=== PATIENT | male | born 1995 | race American Indian/Alaskan Native ===

== ENCOUNTER 2016-07-07 23:01 | Emergency (ER) | payer OTHER ==
--- NOTE | 2016-07-08 04:38 | Emergency Department Report ---
HPI - General Chief Complaint: Allergic Reaction Time Seen by Provider: 07/08/16 04:23 - HPI HPI: Patient is a 20-year-old male with a history of schizophrenia and anxiety who presents to ED stating that he took his medication earlier today and a few hours after he took the medication he began to react silhouette he states his face and mouth and jaw locking up. Patient states he had no loss of consciousness. Patient states didn't call the ambulance ambulance came and administered some Benadryl patient states he feels much better at this time. Patient denies any rash or tongue swelling or throat closing or shortness of breath ED Past Medical Hx - Past Medical History Previous Medical History?: No Hx Psychiatric Treatment: Yes Additional medical history: Bronchitis - Surgical History Past Surgical History?: No - Social History Smoking Status: Current Every Day Smoker Substance Use Type: Alcohol - Medications Home Medications: Home Medications Medication Instructions Recorded Confirmed Last Taken Type Benztropine [Cogentin] 1 mg PO BID 12/23/15 12/23/15 Unknown History OLANzapine [ZyPREXA] 10 mg PO DAILY 12/23/15 12/23/15 Unknown History Sertraline [Zoloft] 100 mg PO QDAY 12/23/15 12/23/15 Unknown History Trazodone HCl 100 mg PO DAILY 12/23/15 12/23/15 Unknown History diphenhydrAMINE [Benadryl CAP] 50 mg PO QHS PRN #24 capsule 07/08/16 Unknown Rx ED Review of Systems ROS: Stated complaint: REACTION TO MEDS Other details as noted in HPI Constitutional: denies: chills, fever Eyes: denies: eye pain, eye discharge, vision change ENT: denies: ear pain, throat pain Respiratory: denies: cough, shortness of breath, wheezing Cardiovascular: denies: chest pain, palpitations Endocrine: no symptoms reported Gastrointestinal: denies: abdominal pain, nausea, vomiting, diarrhea Genitourinary: denies: urgency, dysuria, frequency, hematuria Musculoskeletal: denies: back pain, joint swelling, arthralgia Skin: denies: rash, lesions Neurological: denies: headache, weakness, numbness, paresthesias, confusion, vertigo Psychiatric: denies: anxiety, depression Hematological/Lymphatic: denies: easy bleeding, easy bruising Physical Exam - Physical Exam Vital Signs: Vital Signs 07/08/16 01:24 Temperature 97.9 F Pulse Rate 65 Blood Pressure 111/72 O2 Sat by Pulse 100 Oximetry Physical Exam: GENERAL: Alert and oriented x3, no apparent distress, Normal Gait, atraumatic. HEAD: Head is normocephalic and a-traumatic. EYES: Extra ocular muscles are intact. Pupils are equal, round, and reactive to light and accommodation. MOUTH:Mouth is well hydrated and without lesions. Tonsils nonerythematous or swollen, Uvula midline, Tongue not elevated. Mucous membranes are moist. Posterior pharynx clear, no exudate or lesions. Patent airways. LUNGS: Symetrical with respiration, No wheezing, no rales or crackles, CTAB. HEART: S1, S2 present, regular rate and rhythm without murmur, no rubs, no gallops. EXTREMITIES/MUSCULOSKELETAL: No cyanosis, clubbing, rash, lesions or edema. Full ROM bilaterally. NEUROLOGIC: The patient is cooperative with no focal neurologic deficits. Cranial nerves II through XII are grossly intact. Normal speech. PSYCHIATRIC: Mood is congruent with affect, denies suicidal or homicidal ideations. SKIN: Warm and dry, No lesions, No ulceration or induration present. ED Course Vital Signs 07/08/16 01:24 Temperature 97.9 F Pulse Rate 65 Blood Pressure 111/72 O2 Sat by Pulse 100 Oximetry ED Medical Decision Making - Medical Decision Making 18-year-old male presents with allergic reaction ED course: Patient states feeling much better patient states he has no symptoms at this moment Discussed with patient follow-up with his psych doctor for assessment of medication. Patient states he is seen at the [facility]. Patient states he will follow -up. Vital signs are normal patient is in no acute distress. Critical care attestation.: If time is entered above; I have spent that time in minutes in the direct care of this critically ill patient, excluding procedure time. ED Disposition Clinical Impression: Allergic reaction caused by a drug Qualifiers: Encounter type: initial encounter Qualified Code(s): T78.40XA - Allergy, unspecified, initial encounter Disposition: DISCHARGED TO HOME OR SELFCARE Is pt being admited?: No Does the pt Need Aspirin: No Condition: Stable Instructions: Anaphylaxis (ED), Allergies (ED) Prescriptions: diphenhydrAMINE [Benadryl CAP] 50 mg PO QHS PRN #24 capsule PRN Reason: Allergic Reaction Referrals: PRIMARY CARE, [Primary Care Provider] - 3-5 Days [facility]Outside[facility] - 3-5 Days [facility] [Outside] - 3-5 Days [facility] [Outside] - 3-5 Days Forms: Work/School Release Form(ED) Time of Disposition: 05:05
[2016-07-08] MEDS ORDERED: DELTASONE PO ONE (05:11)
[2016-07-08 05:28] VITALS: BP 95/63
== END 2016-07-08 05:26 | disposition home or self-care (01) ==
LOC: ED 23:01
DX: T78.40XA Allergy, unspecified, initial encounter (principal); T50.905A Adverse effect of unspecified drugs, medicaments and biological substances, initial encounter; F17.200 Nicotine dependence, unspecified, uncomplicated; Y92.89 Other specified places as the place of occurrence of the external cause
CPT/HCPCS: 99282; J7512

== ENCOUNTER 2016-11-11 22:39 | Emergency (ER) | payer SELFPAY ==
[2016-11-12 00:27] LABS: Basophils % (Auto) 0.6 % (0.0-1.8); Eosinophils % (Auto) 0.5 % (0.0-4.3); Hematocrit 39.3 % (35.5-45.6); Mean Corpuscular HGB Conc 33 % (32-34); Mean Corpuscular Hemoglobin 30 pg (28-32); Mean Corpuscular Volume 89 fl (84-94); Platelet Count 239 K/mm3 (140-440); Red Cell Distribution Width 12.7 % (13.2-15.2); White Blood Count 7.9 K/mm3 (4.5-11.0)
[2016-11-12 00:43] LABS: Anion Gap 17 mmol/L; BUN/Creatinine Ratio 11.11; Blood Urea Nitrogen 10 mg/dL (9-20); Calcium 8.9 mg/dL (8.4-10.2); Carbon Dioxide 24 mmol/L (22-30); Glucose 95 mg/dL (75-100); Potassium 4.1 mmol/L (3.6-5.0); Sodium 136 mmol/L (137-145)
[2016-11-12 01:21] LABS: Urine Drugs of Abuse Note Disclamer
[2016-11-12 01:40] LABS: Bilirubin,Urine NEG (Negative); Blood,Urine NEG (Negative); Ketones,Urine NEG (Negative); Leukocyte Esterase,Urine NEG (Negative); Mucus,Urine FEW /HPF; Nitrite,Urine NEG (Negative); Protein,Urine <15 mg/dL mg/dL (Negative); Urobilinogen,Urine < 2.0 mg/dL (<2.0)
--- NOTE | 2016-11-12 03:05 | Emergency Department Report ---
HPI - General Chief Complaint: Psych Time Seen by Provider: 11/12/16 02:30 - HPI HPI: This is a 21 year-old male presents to the emergency department requesting some medication refills and also saying that he has nowhere to go as his brother kicked him out of the house. He says that his brother does not believe in mental illness and he says that his brother told him "if you are going to live in this house you can't believe in mental illness. " He also says that his brother told him that he has not been helping him out with any rent or playing any bills. The patient has a history of schizoaffective disorder and bipolar disorder. He is on Abilify and Seroquel and says that he recently got a shot of Invega at the [facility]. He does have auditory hallucinations and occasionally will have some visual hallucinations but he denies any suicidal or homicidal ideations. ED Past Medical Hx - Past Medical History Previous Medical History?: Yes Hx Psychiatric Treatment: Yes Additional medical history: Bronchitis - Surgical History Past Surgical History?: No - Social History Smoking Status: Light Tobacco Smoker Substance Use Type: None, Methamphetamines - Medications Home Medications: Home Medications Medication Instructions Recorded Confirmed Last Taken Type Benztropine [Cogentin] 1 mg PO BID 12/23/15 12/23/15 Unknown History OLANzapine [ZyPREXA] 10 mg PO DAILY 12/23/15 12/23/15 Unknown History Sertraline [Zoloft] 100 mg PO QDAY 12/23/15 12/23/15 Unknown History Trazodone HCl 100 mg PO DAILY 12/23/15 12/23/15 Unknown History diphenhydrAMINE [Benadryl CAP] 50 mg PO QHS PRN #24 capsule 07/08/16 Unknown Rx ED Review of Systems ROS: Stated complaint: MH Other details as noted in HPI Comment: All other systems reviewed and negative Constitutional: denies: chills, fever Eyes: denies: eye pain, eye discharge, vision change ENT: denies: ear pain, throat pain Respiratory: denies: cough, shortness of breath, wheezing Cardiovascular: denies: chest pain, palpitations Gastrointestinal: denies: abdominal pain, nausea, diarrhea Genitourinary: denies: urgency, dysuria Musculoskeletal: denies: back pain, joint swelling, arthralgia Skin: denies: rash, lesions Neurological: denies: headache, weakness, paresthesias Psychiatric: auditory hallucinations. denies: homicidal thoughts, suicidal thoughts Physical Exam - Physical Exam Vital Signs: Vital Signs 11/11/16 22:49 Temperature 99.4 F Pulse Rate 113 H Respiratory 16 Rate Blood Pressure 121/71 Blood Pressure 121/71 [Left] O2 Sat by Pulse 98 Oximetry Physical Exam: GENERAL: The patient is well-developed well-nourished. HENT: Normocephalic. Atraumatic. Patient has moist mucous membranes. EYES: Extraocular motions are intact. Pupils equal reactive to light bilaterally. NECK: Supple. Trachea is midline. CHEST/LUNGS: Clear to auscultation. There is no respiratory distress noted. HEART/CARDIOVASCULAR: Regular. There is no tachycardia. There is no gallop rub or murmur. ABDOMEN: Abdomen is soft, nontender. Patient has normal bowel sounds. There is no abdominal distention. SKIN: Skin is warm and dry. NEURO: The patient is awake, alert, and oriented. The patient is cooperative. The patient has no focal neurologic deficits. The patient has normal speech. MUSCULOSKELETAL: There is no tenderness or deformity. There is no limitation range of motion. There is no evidence of acute injury. ED Course Vital Signs 11/11/16 22:49 Temperature 99.4 F Pulse Rate 113 H Respiratory 16 Rate Blood Pressure 121/71 Blood Pressure 121/71 [Left] O2 Sat by Pulse 98 Oximetry ED Medical Decision Making - Lab Data Result diagrams: 11/12/16 00:10 11/12/16 00:10 - Medical Decision Making This patient presents after being kicked out of his brother's home and therefore currently has no where to go. He also appears to be out of his psychiatric medications but cannot currently remember the exact dosages. He appears to have a history of schizoaffective disorder and bipolar disorder. The patient does admit to some occasional auditory and visual hallucinations. He was asked multiple times and denies any suicidal or homicidal ideations. He is AAO 3 and currently calm and appropriate. For these reasons the patient does not appear to fit criteria to be made a 1013. He has a history of command hallucinations. While he has not been made a 1013, he will be seen by psychiatry later today. He also has a case management consult for discharge planning. Vital signs stable. Labs are unremarkable except for polysubstance abuse. The patient denies any significant drug use but there is a urine drug screen positive for cocaine, amphetamine and marijuana. The patient was seen by the crisis/behavioral counselor and by case management. Eventually the patient was given some intermediate referrals but ultimately his brother said that he could return back to the house. He was monitored throughout his ED stay and never showed any signs of psychosis or any criteria to be made a 1013. Critical Care Time: No Critical care attestation.: If time is entered above; I have spent that time in minutes in the direct care of this critically ill patient, excluding procedure time. ED Disposition Clinical Impression: Polysubstance abuse, History of bipolar disorder Schizoaffective disorder Qualifiers: Schizoaffective disorder type: unspecified Qualified Code(s): F25.9 - Schizoaffective disorder, unspecified Disposition: DC-01 TO HOME OR SELFCARE Is pt being admited?: No Condition: Stable Referrals: PRIMARY CARE [Primary Care Provider] - 3-5 Days
[2016-11-12 12:03] VITALS: BP 110/70
== END 2016-11-12 12:03 | disposition home or self-care (01) ==
LOC: ED 22:39
DX: F31.9 Bipolar disorder, unspecified (principal); F20.9 Schizophrenia, unspecified; F15.10 Other stimulant abuse, uncomplicated
CPT/HCPCS: 36415; 80048; 80307; 81001; 85025; 99283; G0480; 80320

== ENCOUNTER 2017-03-07 09:39 | Outpatient (CLI) | payer OTHER | END 2017-03-07 09:40 | disposition home or self-care (01) | LOC: PF 09:39 | PROVIDERS: ATTEND Internal Medicine | DX: J45.909 Unspecified asthma, uncomplicated (principal); F32.3 Major depressive disorder, single episode, severe with psychotic features; F17.210 Nicotine dependence, cigarettes, uncomplicated | CPT/HCPCS: 94010 ==

== ENCOUNTER 2019-02-07 16:49 | Emergency (ER) | payer SELFPAY ==
[2019-02-07 17:22] VITALS: BP 135/71
--- NOTE | 2019-02-07 21:06 | Emergency Department Report ---
ED General Adult HPI - General Chief complaint: Seizure Stated complaint: SEIZURE Time Seen by Provider: 02/07/19 20:48 Source: EMS Mode of arrival: Ambulatory Limitations: No Limitations - History of Present Illness Initial comments: 23-year-old -Polish male tells me that he come in for medical condition refill. It was reported that patient came in by EMS as he was found on the side of the road by [place] [employer] thinks the patient may have had a seizure. Upon EMS arrival it was reported patient was speaking [employer]. Review of patient's medical chart shows the patient has a history of Schizophrenia. Patient denies any homicidal or suicidal ideation. Triage vital signs are stable. Severity scale (0 -10): 0 - Related Data Home Medications Medication Instructions Recorded Confirmed Last Taken Benztropine [Cogentin] 1 mg PO BID 12/23/15 12/23/15 Unknown OLANzapine [ZyPREXA] 10 mg PO DAILY 12/23/15 12/23/15 Unknown Sertraline [Zoloft] 100 mg PO QDAY 12/23/15 12/23/15 Unknown Trazodone HCl 100 mg PO DAILY 12/23/15 12/23/15 Unknown Previous Rx's Medication Instructions Recorded Last Taken Type diphenhydrAMINE [Benadryl CAP] 50 mg PO QHS PRN #24 capsule 07/08/16 Unknown Rx Allergies Allergy/AdvReac Type Severity Reaction Status Date / Time haloperidol [From Haldol] Allergy Anaphylaxis Verified 02/07/19 17:18 ED Review of Systems ROS: Stated complaint: SEIZURE Other details as noted in HPI Comment: All other systems reviewed and negative Constitutional: denies: chills, fever Eyes: denies: eye pain, eye discharge, vision change ENT: denies: ear pain, throat pain Respiratory: denies: cough, shortness of breath, wheezing ED Past Medical Hx - Past Medical History Previous Medical History?: Yes Hx Psychiatric Treatment: Yes Additional medical history: Bronchitis - Social History Smoking Status: Current Every Day Smoker Substance Use Type: None - Medications Home Medications: Home Medications Medication Instructions Recorded Confirmed Last Taken Type Benztropine [Cogentin] 1 mg PO BID 12/23/15 12/23/15 Unknown History OLANzapine [ZyPREXA] 10 mg PO DAILY 12/23/15 12/23/15 Unknown History Sertraline [Zoloft] 100 mg PO QDAY 12/23/15 12/23/15 Unknown History Trazodone HCl 100 mg PO DAILY 12/23/15 12/23/15 Unknown History diphenhydrAMINE [Benadryl CAP] 50 mg PO QHS PRN #24 capsule 07/08/16 Unknown Rx ED Physical Exam - General Limitations: No Limitations General appearance: alert, in no apparent distress - Head Head exam: Present: atraumatic, normocephalic - Eye Eye exam: Present: normal appearance - ENT ENT exam: Present: mucous membranes moist - Respiratory Respiratory exam: Present: normal lung sounds bilaterally. Absent: respiratory distress - Cardiovascular Cardiovascular Exam: Present: regular rate, normal rhythm. Absent: systolic murmur, diastolic murmur, rubs, gallop - Neurological Exam Neurological exam: Present: alert, oriented X3, normal gait - Psychiatric Psychiatric exam: Present: normal affect, normal mood. Absent: depressed, agitated, anxious, homicidal ideation, suicidal ideation - Skin Skin exam: Present: warm, dry, intact, normal color. Absent: rash ED Course Vital Signs 02/07/19 17:20 Temperature 98.7 F Pulse Rate 90 Respiratory 16 Rate Blood Pressure 135/71 O2 Sat by Pulse 99 Oximetry ED Medical Decision Making - Medical Decision Making 23-year-old -Polish male tells me that he come in for medical condition refill. It was reported that patient came in by EMS as he was found on the side of the road by [place] [employer] thinks the patient may have had a seizure. Upon EMS arrival it was reported patient was speaking [employer]. Review of patient's medical chart shows the patient has a history of Schizophrenia. Patient denies any homicidal or suicidal ideation. Triage vital signs are stable. Patient's vitals and exam is stable no SI or HI. PERRL no post ictal period patient is to follow-up with his primary care provider. Critical care attestation.: If time is entered above; I have spent that time in minutes in the direct care of this critically ill patient, excluding procedure time. ED Disposition Clinical Impression: Schizophrenia Disposition: DC-01 TO HOME OR SELFCARE Is pt being admited?: No Does the pt Need Aspirin: No Condition: Stable Instructions: Schizophrenia (ED) Additional Instructions: Patient is to follow up with his mental health provider. [facility]. Referrals: [facility] [Outside] - 3-5 Days
== END 2019-02-07 21:00 | disposition home or self-care (01) ==
LOC: ED 16:49
DX: F20.9 Schizophrenia, unspecified (principal); J40 Bronchitis, not specified as acute or chronic; F17.200 Nicotine dependence, unspecified, uncomplicated; Z79.899 Other long term (current) drug therapy; Z88.8 Allergy status to other drugs, medicaments and biological substances; Z76.0 Encounter for issue of repeat prescription

== ENCOUNTER 2021-09-21 04:57 | Emergency (ER) | payer SELFPAY ==
[2021-09-21 05:51] LABS: Basophils % (Auto) 0.8 % (0.0-1.8); Eosinophils # (Auto) 0.3 K/mm3 (0.0-0.4); Eosinophils % (Auto) 6.5 % (0.0-4.3); Hematocrit 36.2 % (35.5-45.6); Lymphocytes % (Auto) 23.5 % (13.4-35.0); Mean Corpuscular HGB Conc 33 % (32-34); Mean Corpuscular Volume 89 fl (84-94); Monocytes # (Auto) 0.6 K/mm3 (0.0-0.8); Monocytes % (Auto) 13.8 % (0.0-7.3); Platelet Count 192 K/mm3 (140-440); Red Blood Count 4.07 M/mm3 (3.65-5.03); Red Cell Distribution Width 13.2 % (13.2-15.2)
[2021-09-21 06:08] LABS: Bacteria,Urine 1+ /HPF (Negative); WBC,Urine < 1.0 /HPF (0.0-6.0)
[2021-09-21 06:08] LABS: Blood Urea Nitrogen 12 mg/dL (9-20); Calcium 7.9 mg/dL (8.4-10.2); Hemolysis Index 5
[2021-09-21 06:09] LABS: Bilirubin,Urine Negative (Negative); Color,Urine Yellow (Yellow)
[2021-09-21 06:10] LABS: Blood,Urine Negative (Negative); Protein,Urine <15 mg/dL mg/dL (Negative)
[2021-09-21 06:20] LABS: BUN/Creatinine Ratio 17
[2021-09-21 06:49] LABS: Amphetamine Screen,Urine PRESUMPTIVE POSITIVE; Benzodiazepines Screen,Urine PRESUMPTIVE NEGATIVE; Cannabinoid Screen,Urine PRESUMPTIVE POSITIVE; Cocaine Screen,Urine PRESUMPTIVE NEGATIVE; Methadone Screen,Urine PRESUMPTIVE NEGATIVE; Opiate Screen,Urine PRESUMPTIVE NEGATIVE
--- NOTE | 2021-09-21 10:19 | Emergency Department Report ---
ED Psych HPI - General Chief Complaint: Medical Clearance Stated Complaint: MENTAL HELP Time Seen by Provider: 09/21/21 10:06 Source: patient Mode of arrival: Ambulatory - History of Present Illness Initial Comments: This is a 26-year-old male with bipolar disorder, schizoaffective disorder and schizophrenia who presents to the emergency department complaining of command hallucinations, "for a while". Patient states that these hallucinations are asking him to do bad things, but are not telling him to hurt anyone. Patient denies suicidal ideations or homicidal ideations, but he is requesting a psychiatric evaluation as he is concerned that his medications are not working and he was just released from intermediate on September 16, 2021. Patient also states that his family is concerned about his "mental health". Patient denies any known alleviating or aggravating factors. Patient denies having previously seen a psychiatrist, but is on several mental health medications. - Related Data Home Medications Medication Instructions Recorded Confirmed Last Taken Benztropine [Cogentin] 1 mg PO BID 12/23/15 12/23/15 Unknown OLANzapine [ZyPREXA] 10 mg PO DAILY 12/23/15 12/23/15 Unknown Sertraline [Zoloft] 100 mg PO QDAY 12/23/15 12/23/15 Unknown Trazodone HCl 100 mg PO DAILY 12/23/15 12/23/15 Unknown Previous Rx's Medication Instructions Recorded Last Taken Type diphenhydrAMINE [Benadryl CAP] 50 mg PO QHS PRN #24 capsule 07/08/16 Unknown Rx Allergies Allergy/AdvReac Type Severity Reaction Status Date / Time haloperidol [From Haldol] Allergy Anaphylaxis Verified 02/07/19 17:18 ED Review of Systems ROS: Stated complaint: MENTAL HELP Other details as noted in HPI Comment: All other systems reviewed and negative Constitutional: denies: chills, fever Eyes: denies: eye pain, eye discharge, vision change ENT: denies: ear pain, throat pain Respiratory: denies: cough, shortness of breath, wheezing Cardiovascular: denies: chest pain, palpitations Endocrine: no symptoms reported Gastrointestinal: denies: abdominal pain, nausea, diarrhea Genitourinary: denies: urgency, dysuria Musculoskeletal: denies: back pain, joint swelling, arthralgia Skin: lesions (pimple on nose). denies: rash Neurological: denies: headache, weakness, paresthesias Psychiatric: auditory hallucinations, visual hallucinations. denies: anxiety, depression, suicidal thoughts Hematological/Lymphatic: denies: easy bleeding, easy bruising ED Past Medical Hx - Past Medical History Hx Psychiatric Treatment: Yes Additional medical history: Bronchitis - Social History Smoking Status: Current Every Day Smoker Substance Use Type: None - Medications Home Medications: Home Medications Medication Instructions Recorded Confirmed Last Taken Type Benztropine [Cogentin] 1 mg PO BID 12/23/15 12/23/15 Unknown History OLANzapine [ZyPREXA] 10 mg PO DAILY 12/23/15 12/23/15 Unknown History Sertraline [Zoloft] 100 mg PO QDAY 12/23/15 12/23/15 Unknown History Trazodone HCl 100 mg PO DAILY 12/23/15 12/23/15 Unknown History diphenhydrAMINE [Benadryl CAP] 50 mg PO QHS PRN #24 capsule 07/08/16 Unknown Rx ED Physical Exam - General Limitations: No Limitations General appearance: alert, in no apparent distress - Head Head exam: Present: atraumatic, normocephalic - Eye Eye exam: Present: normal appearance, PERRL, EOMI - ENT ENT exam: Present: mucous membranes moist - Neck Neck exam: Present: normal inspection - Respiratory Respiratory exam: Present: normal lung sounds bilaterally. Absent: respiratory distress, wheezes - Cardiovascular Cardiovascular Exam: Present: regular rate, normal rhythm. Absent: systolic murmur, diastolic murmur, rubs, gallop - GI/Abdominal GI/Abdominal exam: Present: soft, normal bowel sounds. Absent: distended, tenderness, guarding - Rectal Rectal exam: Present: deferred - Extremities Exam Extremities exam: Present: normal inspection - Back Exam Back exam: Present: normal inspection - Neurological Exam Neurological exam: Present: alert, oriented X3 - Psychiatric Psychiatric exam: Present: normal mood, flat affect. Absent: normal affect, anxious, manic, homicidal ideation, suicidal ideation - Skin Skin exam: Present: warm, dry, intact, normal color. Absent: rash ED Course Vital Signs 09/21/21 04:58 Temperature 97.6 F Pulse Rate 82 Respiratory 18 Rate Blood Pressure 92/52 [Right] O2 Sat by Pulse 99 Oximetry - Reevaluation(s) Reevaluation #1: 09/21/21 10:28 This patient has been medically cleared, and is awaiting assessment by mental health, here. The patient is not being placed on a 1013, currently, as he is not actively agitated or psychotic. Patient also does not have any homicidal or suicidal ideations. Reevaluation #2: 09/21/21 13:01 There have been no acute issues during my shift, patient is still awaiting mental health evaluation and disposition. ED Medical Decision Making - Lab Data Result diagrams: 09/21/21 05:23 09/21/21 05:23 - Differential Diagnosis Malingering, acute psychosis, medication noncompliance Critical care attestation.: If time is entered above; I have spent that time in minutes in the direct care of this critically ill patient, excluding procedure time. ED Disposition Clinical Impression: Hallucination Disposition: 30 STILL A PATIENT Is pt being admited?: No Does the pt Need Aspirin: No Condition: Stable Referrals: FADY MILLARD MD [Primary Care Provider] - 3-5 Days
[2021-09-21 12:43] LABS: Benzodiazepines Screen,Urine Negative; Cocaine Screen,Urine Negative; Methadone Screen,Urine Negative; Opiate Screen,Urine Negative
[2021-09-21 13:04] LABS: Amphetamine Screen,Urine Positive; Cannabinoid Screen,Urine Positive
--- NOTE | 2021-09-21 13:26 | Consultation ---
History of Present Illness - Reason for Consult Consult date: 09/21/21 Reason for consult: suicidal ideation - History of Present Psychiatric Illness Per Note: This is a 26-year-old male with bipolar disorder, schizoaffective disorder and schizophrenia who presents to the emergency department complaining of command hallucinations, "for a while". Patient states that these hallucinations are asking him to do bad things, but are not telling him to hurt anyone. Patient denies suicidal ideation or homicidal ideation, but he is requesting a psychiatric evaluation as he is concerned that his medications are not working and he was just released from shelter on September 16, 2021. Patient also states that his family is concerned about his "mental health". Patient denies any known alleviating or aggravating factors. Patient denies having previously seen a psychiatrist, but is on several mental health medications. The patient was seen today. He is calm and cooperative. He endorses suicidal ideation and auditory hallucinations. He reports being non-compliant since his release from [facility] last Tuesday; states he was incarcerated for almost 3 years and was on Geodon and Cogentin. PAST PSYCHIATRIC HISTORY Diagnoses: Schizophrenia Suicide attempts or Self-harm behavior: Yes Prior psychiatric hospitalizations: Yes Substance Abuse history: Denies Previous psychiatric medications tried:Cogentin, Geodon Outpatient treatment: Yes PAST MEDICAL HISTORY: None reported Family Psychiatric History: None reported or documented SOCIAL HISTORY Living arrangement: Homeless Marital status: Single Employment status: Disabled REVIEW OF SYSTEMS Constitutional: Negative for weight loss ENT: Negative for stridor Respiratory: Negative for cough or hemoptysis All other systems reviewed and are negative MENTAL STATUS EXAMINATION General Appearance and Behavior: Age appropriate, good hygiene, wearing appropriate clothes, good eye contact, calm, cooperative Cooperation: Participating/engaged, but Guarded Psychomotor Behavior: Psychomotor normal Mood: depressed Affect and affective range: congruent with stated mood Thought Process: goal directed Thought Content: suicidal/hallucinations Speech: Normal tone and pace Suicidal Ideation: yes Homicidal Ideation: Denies Hallucinations: Auditory Delusions: None elicited Impulse Control: Normal Insight and Judgment: Limited insight and judgment Memory: Limited Attention: divided Orientation: Alert, oriented Assessment and Plan Schizophrenia Treatment Plan 1013 Continue home Meds Geodon 20mg po BID Cogentin 1mg po BID Risks, benefits and alternatives of medications discussed with the patient, questions answered and consent obtained from patient. PSYCHOTHERAPY: Supportive psychotherapy provided MEDICAL: Per primary team DELIRIUM PRECAUTIONS: Please re-orient patient frequently, keep lights on during the day, and minimize benzodiazepines and opiates as these medications could worsen patient's confusion. 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 Thank you for the consult. Please contact with any questions and/or concerns. Case staffed with Dr. Vuong Medications and Allergies Medications and Allergies Allergies Allergy/AdvReac Type Severity Reaction Status Date / Time haloperidol [From Haldol] Allergy Anaphylaxis Verified 02/07/19 17:18 Home Medications Medication Instructions Recorded Confirmed Last Taken Type Benztropine [Cogentin] 1 mg PO BID 12/23/15 12/23/15 Unknown History OLANzapine [ZyPREXA] 10 mg PO DAILY 12/23/15 12/23/15 Unknown History Sertraline [Zoloft] 100 mg PO QDAY 12/23/15 12/23/15 Unknown History Trazodone HCl 100 mg PO DAILY 12/23/15 12/23/15 Unknown History diphenhydrAMINE [Benadryl CAP] 50 mg PO QHS PRN #24 capsule 07/08/16 Unknown Rx Mental Status Exam - Vital signs Last Vital Signs Temp 97.6 F 09/21/21 04:58 Pulse 82 09/21/21 04:58 Resp 18 09/21/21 04:58 BP 92/52 09/21/21 04:58 Pulse Ox 97 09/21/21 13:14 Results Result Diagrams: 09/21/21 05:23 09/21/21 05:23 Abnormal lab results 09/21/21 09/21/21 09/21/21 Range/Units 05:23 05:23 05:23 WBC (4.5-11.0) K/mm3 Avery % (Auto) (0.0-7.3) % Eos % (Auto) (0.0-4.3) % Lymph # (Auto) (1.2-5.4) K/mm3 Creatinine 0.7 L (0.8-1.3) mg/dL Glucose 101 H (75-100) mg/dL Calcium 7.9 L (8.4-10.2) mg/dL Salicylates < 0.3 L (2.8-20.0) mg/dL Acetaminophen 5.0 L (10.0-30.0) ug/mL 09/21/21 Range/Units 05:23 WBC 4.2 L (4.5-11.0) K/mm3 Avery % (Auto) 13.8 H (0.0-7.3) % Eos % (Auto) 6.5 H (0.0-4.3) % Lymph # (Auto) 1.0 L (1.2-5.4) K/mm3 Creatinine (0.8-1.3) mg/dL Glucose (75-100) mg/dL Calcium (8.4-10.2) mg/dL Salicylates (2.8-20.0) mg/dL Acetaminophen (10.0-30.0) ug/mL All other labs normal.
[2021-09-21 14:04] LABS: WBC,Urine < 1.0 /HPF (0.0-6.0)
[2021-09-21] MEDS: BENZTROPINE 1 MG TAB PO SCH (14:08)
[2021-09-21] MEDS: ZIPRASIDONE 20 MG CAP PO SCH (14:08)
[2021-09-21 14:52] LABS: Color,Urine Yellow (Yellow)
[2021-09-21 14:53] LABS: Bilirubin,Urine Negative (Negative); Blood,Urine NEG (Negative); Protein,Urine <15 mg/dL mg/dL (Negative)
[2021-09-22 08:58] VITALS: BP 133/68
[2021-09-22] MEDS: BENZTROPINE 1 MG TAB PO SCH (09:51)
[2021-09-22] MEDS: ZIPRASIDONE 20 MG CAP PO SCH (09:51)
--- NOTE | 2021-09-22 11:39 | Progress Note ---
Subjective - Reason for Consult Consult date: 09/22/21 Reason for consult: Suicidal Ideation - Chief Complaint Chief complaint: The patient was seen today. He reports doing well but continue to be depressed rates as 08/23. Also endorses auditory and visual hallucinations " Voices telling me to harm myself sometimes and I see darkness." Will continue recommending inpatient psychiatry. REVIEW OF SYSTEMS Constitutional: Negative for weight loss ENT: Negative for stridor Respiratory: Negative for cough or hemoptysis All other systems reviewed and are negative MENTAL STATUS EXAMINATION General Appearance and Behavior: Age appropriate, good hygiene, wearing appropriate clothes, good eye contact, calm, cooperative Cooperation: Participating/engaged, but Guarded Psychomotor Behavior: Psychomotor normal Mood: depressed Affect and affective range: congruent with stated mood Thought Process: goal directed Thought Content: suicidal/hallucinations Speech: Normal tone and pace Suicidal Ideation: yes Homicidal Ideation: Denies Hallucinations: Auditory Delusions: None elicited Impulse Control: Normal Insight and Judgment: Limited insight and judgment Memory: Limited Attention: divided Orientation: Alert, oriented Assessment and Plan Schizophrenia Treatment Plan 1013 Continue home Meds Start depakote 125mg PO BID Geodon 20mg po BID Cogentin 1mg po BID Risks, benefits and alternatives of medications discussed with the patient, questions answered and consent obtained from patient. PSYCHOTHERAPY: Supportive psychotherapy provided MEDICAL: Per primary team DELIRIUM PRECAUTIONS: Please re-orient patient frequently, keep lights on during the day, and minimize benzodiazepines and opiates as these medications could worsen patient's confusion. 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 Thank you for the consult. Please contact with any questions and/or concerns. Case staffed with Dr. Vuong Medications and Allergies Mental Status Exam - Vital signs Last Vital Signs Temp 98.6 F 09/22/21 08:56 Pulse 68 09/22/21 08:56 Resp 18 09/22/21 08:56 BP 133/68 09/22/21 08:56 Pulse Ox 99 09/22/21 08:57
[2021-09-22] MEDS ORDERED: DIVALPROEX DR 125 MG TAB PO SCH (12:00)
== END 2021-09-22 14:31 ==
LOC: EEVIPCON 04:57 → ED 04:57
DX: R44.0 Auditory hallucinations (principal); Z13.30 Encounter for screening examination for mental health and behavioral disorders, unspecified; Z20.822 Contact with and (suspected) exposure to COVID-19; F17.200 Nicotine dependence, unspecified, uncomplicated; Z91.09 Other allergy status, other than to drugs and biological substances
CPT/HCPCS: 36415; 80048; 80307; 81001; 85025; 99284; U0003; 80320; G0480

== ENCOUNTER 2021-10-10 04:48 | Emergency (ER) | payer SELFPAY | END 2021-10-10 07:03 | disposition left against medical advice (07) | LOC: EDBD → ED 04:48 | DX: R44.0 Auditory hallucinations (principal); Z53.21 Procedure and treatment not carried out due to patient leaving prior to being seen by health care provider ==

== ENCOUNTER 2021-10-10 11:12 | Emergency (ER) | payer SELFPAY ==
[2021-10-10 12:25] VITALS: BP 102/42
[2021-10-10 12:57] LABS: Hematocrit 36.5 % (35.5-45.6); Hemoglobin 12.5 gm/dl (11.8-15.2); Mean Corpuscular HGB Conc 34 % (32-34); Mean Corpuscular Volume 89 fl (84-94); Platelet Count 175 K/mm3 (140-440); Red Blood Count 4.11 M/mm3 (3.65-5.03); Red Cell Distribution Width 13.6 % (13.2-15.2)
[2021-10-10 13:09] LABS: Blood Urea Nitrogen 13 mg/dL (9-20); Calcium 8.5 mg/dL (8.4-10.2); Hemolysis Index 9
[2021-10-10 13:14] LABS: BUN/Creatinine Ratio 19
[2021-10-10 13:48] LABS: Anisocytosis 1+; Large Platelets Few; Platelet Estimate Consistent w Auto; Total Cells Counted 100
[2021-10-10 14:42] LABS: Amphetamine Screen,Urine PRESUMPTIVE POSITIVE; Benzodiazepines Screen,Urine PRESUMPTIVE NEGATIVE; Cannabinoid Screen,Urine PRESUMPTIVE POSITIVE; Cocaine Screen,Urine PRESUMPTIVE NEGATIVE; Methadone Screen,Urine PRESUMPTIVE NEGATIVE; Opiate Screen,Urine PRESUMPTIVE NEGATIVE
[2021-10-10 14:52] LABS: Mucus,Urine FEW /HPF
[2021-10-10 15:17] LABS: Color,Urine Straw (Yellow)
--- NOTE | 2021-10-10 16:07 | Emergency Department Report ---
ED General Adult HPI - General Chief complaint: Psych Stated complaint: PSYCH EVAL Time Seen by Provider: 10/10/21 15:59 Source: patient Mode of arrival: Ambulatory Limitations: No Limitations - History of Present Illness Initial comments: 26-year-old male with medical history of bipolar disorder polysubstance abuse schizoaffective disorder and also schizophrenia came in today with concerns of suicidal ideation. Patient said that he is having living situation with his mother and brother and he is feels depressed as well. Patient denies any suicidal complaints however in the past he has tried to hang himself in a tree broke off and it was unsuccessful. Patient denies ever cutting himself. Patient denies having weapons at home. Patient endorsed hearing voices but they are not telling him to hurt anybody else or himself. Patient denies tactile or visual hallucination. Patient current denies any other discomfort. - Related Data Home Medications Medication Instructions Recorded Confirmed Last Taken Benztropine [Cogentin] 1 mg PO BID 12/23/15 12/23/15 Unknown OLANzapine [ZyPREXA] 10 mg PO DAILY 12/23/15 12/23/15 Unknown Sertraline [Zoloft] 100 mg PO QDAY 12/23/15 12/23/15 Unknown Trazodone HCl 100 mg PO DAILY 12/23/15 12/23/15 Unknown Previous Rx's Medication Instructions Recorded Last Taken Type diphenhydrAMINE [Benadryl CAP] 50 mg PO QHS PRN #24 capsule 07/08/16 Unknown Rx Allergies Allergy/AdvReac Type Severity Reaction Status Date / Time haloperidol [From Haldol] Allergy Anaphylaxis Verified 02/07/19 17:18 ED Review of Systems ROS: Stated complaint: PSYCH EVAL Other details as noted in HPI Comment: All other systems reviewed and negative Constitutional: no symptoms reported, see HPI Eyes: as per HPI ENT: as per HPI Respiratory: no symptoms reported Cardiovascular: as per HPI Endocrine: no symptoms reported Gastrointestinal: as per HPI Genitourinary: as per HPI Musculoskeletal: as per HPI Skin: as per HPI Neurological: as per HPI Psychiatric: depression, auditory hallucinations, suicidal thoughts. denies: visual hallucinations, homicidal thoughts Hematological/Lymphatic: as per HPI ED Past Medical Hx - Past Medical History Previous Medical History?: Yes Hx Psychiatric Treatment: Yes (schizophrenia) Additional medical history: Bronchitis - Social History Smoking Status: Current Every Day Smoker Substance Use Type: None - Medications Home Medications: Home Medications Medication Instructions Recorded Confirmed Last Taken Type Benztropine [Cogentin] 1 mg PO BID 12/23/15 12/23/15 Unknown History OLANzapine [ZyPREXA] 10 mg PO DAILY 12/23/15 12/23/15 Unknown History Sertraline [Zoloft] 100 mg PO QDAY 12/23/15 12/23/15 Unknown History Trazodone HCl 100 mg PO DAILY 12/23/15 12/23/15 Unknown History diphenhydrAMINE [Benadryl CAP] 50 mg PO QHS PRN #24 capsule 07/08/16 Unknown Rx ED Physical Exam - General Limitations: No Limitations General appearance: alert, in no apparent distress - Head Head exam: Present: atraumatic, normocephalic, normal inspection, other - Eye Eye exam: Present: normal appearance, PERRL, EOMI Pupils: Present: normal accommodation - ENT ENT exam: Present: normal exam, mucous membranes moist - Neck Neck exam: Present: normal inspection, full ROM - Respiratory Respiratory exam: Present: normal lung sounds bilaterally - Cardiovascular Cardiovascular Exam: Present: regular rate, normal rhythm, normal heart sounds - GI/Abdominal GI/Abdominal exam: Present: soft - Extremities Exam Extremities exam: Present: normal inspection, full ROM, normal capillary refill - Back Exam Back exam: Present: normal inspection, full ROM - Neurological Exam Neurological exam: Present: alert, oriented X3, CN II-XII intact, normal gait - Psychiatric Psychiatric exam: Present: depressed, flat affect, suicidal ideation. Absent: manic, homicidal ideation - Skin Skin exam: Present: warm, normal color ED Course Vital Signs 10/10/21 10/10/21 12:17 18:23 Temperature 97.6 F Pulse Rate 73 Respiratory 18 Rate Blood Pressure 102/42 [Left] O2 Sat by Pulse 100 99 Oximetry ED Medical Decision Making - Lab Data Result diagrams: 10/10/21 12:37 10/10/21 12:37 - Medical Decision Making RECOMMENDATION: Pt does NOT meet criteria for inpatient psyc admission/1013. Pt [facility] admission to [facility] due to housing stressors; pt would like assistance with other social issues (food stamps, housing, starting his SSI disbility). [facility] provided outpatient mental health referrals, crisis line numbers, substance abuse resources, housing referrals and employment resources in discharge section of pt's chart. Tamie Max LPC Critical care attestation.: If time is entered above; I have spent that time in minutes in the direct care of this critically ill patient, excluding procedure time. ED Disposition Clinical Impression: Amphetamine abuse, Tetrahydrocannabinol (THC) dependence, Passive suicidal ideations, Depressed affect, Stress at home Disposition: 01 HOME / SELF CARE / HOMELESS Is pt being admited?: No Does the pt Need Aspirin: No Condition: Stable Instructions: Adjustment Disorder, Adult Additional Instructions: Professional and Agency Contacts To help Resolve Crises (06/09) [place] Crisis Line: Suicide Prevention Line: Crisis Text Line: Text START to 400514 Emergency: 911 Outpatient COMMUNITY Behavioral Health Resources: [place]: [facility] [address] [place], [place] [address] [facility] [address] [place] [address] Tuesday thru Tuesday - 8am - 5pm Call to schedule an assessment for mental health and substance abuse programs [facility] Address: [address] [place], [place] [address]Tuesday thru Tuesday- 7am-2pm [facility] Address: [address] [place] [address] Tuesday thru Tuesday: 8:30AM-5PM HOMELESS RESOURCES: [facility] NEED HELP? If you are in need of help or know someone who does, please contact us at [email or web address] call , or come to our offices at [address] [place] [address], Tuesday-Tuesday beginning 9:30 AM-1:30 PM -Support services help people with getting identification and legal documents -Homeless verification letter -Facesheet (if needed) [facility] Males only Admission at 7am Tue to Tue Address: [address] [place] [address] Client Engagement [phone] Regular program admission occurs Tuesday through Tuesday at 7:00 amand operates on a first come, first serve basis.Because we cant anticipate program availability in advance andprogram spots are in high demand, we recommend arriving early. Space fills up fast! Next steps can include: Assignment to a [facility] program bed Connection to and placement in a partner program, or Referral to a partner agency [facility] only Admission at 4:30pm daily Address: [address] [place] [address] [facility] Admission from 8am to 10am Daily Address: [address] [place] [address] In case of an emergency, please contact the following numbers: [place] Crisis and Access Line: Number: Crisis Text Line: (Text START) Number: 001676 Suicide Prevention Line: Number: Emergency Number: 911 SUBSTANCE ABUSE PROGRAMS: [facility]: Location: [place], [place] [employer] Address: [address] [place] [address] [facility]: Address: [address] [place] [address] [facility]: Address: [address] [place] [address] [facility]: Address: [address] [place] [address] [facility] Address: [address] [place] [address]. The [employer] [facility] [employer]goal is to take chronically homeless men and help them overcome their barriers, change them as human beings,making them productive and self- sufficient individuals. Each [employer] participant is housed at our facility for up to a year while they participate in transitional work (earning $7.40/hr for 30+ hours per week). All participants renounce dependency and remain drug and alcohol free. Personal support, case management, and workforce training is offered throughout the program. We also provide AA/NA Classes, GED classes, support in obtaining a commercial trailer truck driver's licenses,help setting up a bank account,and life skill preparation courses. IF A MAN IS COMMITTED TO BEING CLEAN, TO ADDRESSING THE PAST, AND TO WORKING, WE WILL HELP HIM GET A [employer] SIDING INSTALLER JOB, TRANSPORTATION AND PERMANENT HOUSING WITHIN A YEAR. [employer] [address] [place] [phone] [email or web address] Time of Disposition: 18:46
== END 2021-10-11 09:08 | disposition home or self-care (01) ==
LOC: ED 11:12
DX: F15.10 Other stimulant abuse, uncomplicated (principal); F12.20 Cannabis dependence, uncomplicated; R45.851 Suicidal ideations; F33.2 Major depressive disorder, recurrent severe without psychotic features
CPT/HCPCS: 36415; 80048; 80307; 80320; 81001; 85007; 85025; 99284; G0480

== ENCOUNTER 2021-10-16 17:53 | Emergency (ER) | payer SELFPAY ==
[2021-10-16] MEDS ORDERED: SODIUM CHLORIDE 0.9% 1000 ML 1,000 ML IV ONE (18:40)
[2021-10-16] MEDS ORDERED: NALOXONE 2 MG/2 ML INJ IV ONE (18:40)
--- NOTE | 2021-10-16 19:32 | XRay Report ---
CHEST 1 VIEW 10/16/2021 6:08 PM INDICATION / CLINICAL INFORMATION: Altered Mental Status. Overdose. COMPARISON: None available. FINDINGS: SUPPORT DEVICES: None. HEART / MEDIASTINUM: No significant abnormality. LUNGS / PLEURA: No significant pulmonary or pleural abnormality. No pneumothorax. ADDITIONAL FINDINGS: No significant additional findings. IMPRESSION: 1. No acute findings. Signer Name: Melissa Raymond MD Signed: 10/16/2021 7:27 PM Workstation Name: [id number]
[2021-10-16 19:58] LABS: Alanine Aminotransferase 26 units/L (7-56); Albumin 3.7 g/dL (3.9-5); BUN/Creatinine Ratio 9; Blood Urea Nitrogen 8 mg/dL (9-20); Calcium 8.4 mg/dL (8.4-10.2); Hemolysis Index 10
[2021-10-16 20:02] LABS: Hematocrit 36.4 % (35.5-45.6); Hemoglobin 12.2 gm/dl (11.8-15.2); Mean Corpuscular HGB Conc 34 % (32-34); Mean Corpuscular Volume 90 fl (84-94); Platelet Count 207 K/mm3 (140-440); Red Blood Count 4.06 M/mm3 (3.65-5.03); Red Cell Distribution Width 13.3 % (13.2-15.2)
--- NOTE | 2021-10-16 20:32 | Emergency Department Report ---
ED General Adult HPI - General Chief complaint: Overdose Stated complaint: OD PUI?: No Time Seen by Provider: 10/16/21 18:37 Source: EMS Mode of arrival: Stretcher Limitations: Altered Mental Status - History of Present Illness Initial comments: pt overdose at home, room mate called, eyes [place], given .4 narcan, pt responded PT DENIES si , HE SAID HE GOT GEODON AND PEROCET FROM STREET -: unknown Severity scale (0 -10): 0 Consistency: constant Improves with: none Worsens with: none Associated Symptoms: denies: denies other symptoms, confusion, chest pain - Related Data Home Medications Medication Instructions Recorded Confirmed Last Taken Benztropine [Cogentin] 1 mg PO BID 12/23/15 12/23/15 Unknown OLANzapine [ZyPREXA] 10 mg PO DAILY 12/23/15 12/23/15 Unknown Sertraline [Zoloft] 100 mg PO QDAY 12/23/15 12/23/15 Unknown Trazodone HCl 100 mg PO DAILY 12/23/15 12/23/15 Unknown Previous Rx's Medication Instructions Recorded Last Taken Type diphenhydrAMINE [Benadryl CAP] 50 mg PO QHS PRN #24 capsule 07/08/16 Unknown Rx Allergies Allergy/AdvReac Type Severity Reaction Status Date / Time haloperidol [From Haldol] Allergy Anaphylaxis Verified 02/07/19 17:18 ED Review of Systems ROS: Stated complaint: OD Other details as noted in HPI Constitutional: denies: chills, fever Eyes: denies: eye pain, eye discharge, vision change ENT: denies: ear pain, throat pain Respiratory: denies: cough, shortness of breath, wheezing Cardiovascular: denies: chest pain, palpitations Endocrine: no symptoms reported Gastrointestinal: denies: abdominal pain, nausea, diarrhea Genitourinary: denies: urgency, dysuria Musculoskeletal: denies: back pain, joint swelling, arthralgia Skin: denies: rash, lesions Neurological: denies: headache, weakness, paresthesias Psychiatric: denies: anxiety, depression Hematological/Lymphatic: denies: easy bleeding, easy bruising ED Past Medical Hx - Past Medical History Previous Medical History?: No Hx Hypertension: No Hx Psychiatric Treatment: Yes (schizophrenia) Additional medical history: Bronchitis, drug abuse - Social History Smoking Status: Current Every Day Smoker - Medications Home Medications: Home Medications Medication Instructions Recorded Confirmed Last Taken Type Benztropine [Cogentin] 1 mg PO BID 12/23/15 12/23/15 Unknown History OLANzapine [ZyPREXA] 10 mg PO DAILY 12/23/15 12/23/15 Unknown History Sertraline [Zoloft] 100 mg PO QDAY 12/23/15 12/23/15 Unknown History Trazodone HCl 100 mg PO DAILY 12/23/15 12/23/15 Unknown History diphenhydrAMINE [Benadryl CAP] 50 mg PO QHS PRN #24 capsule 07/08/16 Unknown Rx ED Physical Exam - General Limitations: Altered Mental Status General appearance: alert, in no apparent distress - Head Head exam: Present: atraumatic, normocephalic - Eye Eye exam: Present: normal appearance - ENT ENT exam: Present: mucous membranes moist - Neck Neck exam: Present: normal inspection - Respiratory Respiratory exam: Present: normal lung sounds bilaterally. Absent: respiratory distress - Cardiovascular Cardiovascular Exam: Present: regular rate, normal rhythm. Absent: systolic murmur, diastolic murmur, rubs, gallop - GI/Abdominal GI/Abdominal exam: Present: soft, normal bowel sounds - Rectal Rectal exam: Present: deferred - Extremities Exam Extremities exam: Present: normal inspection - Back Exam Back exam: Present: normal inspection - Neurological Exam Neurological exam: Present: alert, oriented X3 - Psychiatric Psychiatric exam: Present: normal affect, normal mood - Skin Skin exam: Present: warm, dry, intact, normal color. Absent: rash ED Course Vital Signs 10/16/21 10/16/21 10/16/21 18:28 19:43 22:57 Temperature 97.5 F L Pulse Rate 82 66 62 Respiratory 12 15 17 Rate Blood Pressure 106/61 Blood Pressure 94/47 110/72 [Left] O2 Sat by Pulse 99 99 97 Oximetry 10/17/21 02:21 Temperature Pulse Rate 78 Respiratory 18 Rate Blood Pressure Blood Pressure 102/68 [Left] O2 Sat by Pulse 97 Oximetry ED Medical Decision Making - Lab Data Result diagrams: 10/16/21 19:04 10/16/21 19:04 Critical care attestation.: If time is entered above; I have spent that time in minutes in the direct care of this critically ill patient, excluding procedure time. ED Disposition Clinical Impression: Accidental ingestion of substance, Narcotic drug use, Amphetamine abuse Disposition: 01 HOME / SELF CARE / HOMELESS Is pt being admited?: No Does the pt Need Aspirin: No Condition: Stable Instructions: Preventing Poisoning, Adult, Opioid Use Disorder Referrals: FADY MILLARD MD [Primary Care Provider] - 3-5 Days
[2021-10-16 21:02] LABS: Bacteria,Urine 1+ /HPF (Negative); Mucus,Urine FEW /HPF
[2021-10-16 21:11] LABS: Color,Urine Yellow (Yellow); Ictotest,Urine Negative (Negative)
[2021-10-16 21:13] LABS: Benzodiazepines Screen,Urine Negative; Cocaine Screen,Urine Negative; Methadone Screen,Urine Negative; Opiate Screen,Urine Negative
[2021-10-16 21:16] LABS: Anisocytosis 1+; Hypochromasia Rare; Total Cells Counted 100
[2021-10-16 21:26] LABS: Amphetamine Screen,Urine Positive; Cannabinoid Screen,Urine Positive
[2021-10-17 02:24] VITALS: BP 102/68
--- NOTE | 2021-10-19 16:44 | Electrocardiograph Report ---
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
--- NOTE | 2021-10-20 09:20 | Electrocardiograph Report ---
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
== END 2021-10-17 02:20 | disposition home or self-care (01) ==
LOC: ED 17:53
DX: T50.901A Poisoning by unspecified drugs, medicaments and biological substances, accidental (unintentional), initial encounter (principal); Y92.89 Other specified places as the place of occurrence of the external cause; F15.10 Other stimulant abuse, uncomplicated; F17.200 Nicotine dependence, unspecified, uncomplicated; F20.9 Schizophrenia, unspecified
CPT/HCPCS: 36415; 71045; 80053; 80307; 81001; 82550; 84484; 85007; 85025; 93005; 96361; 96374; 99285; J2310; J7030; 80320; G0480